=== PATIENT | male | born 1960 ===

== ENCOUNTER 2016-12-06 11:56 | Observation (INO) ==
[2016-12-06] MEDS ORDERED: DEXTROSE 50% 25 GM/50 ML VIAL IV PRN (13:05)
[2016-12-06] MEDS ORDERED: NICOTINE 21 MG/24 HR PATCH TRANSDERM PRN (13:05)
[2016-12-06] MEDS ORDERED: diphenhydrAMINE CAP 25 MG CAPSULE PO PRN (13:05)
[2016-12-06] MEDS ORDERED: ONDANSETRON 4 MG/2 ML VIAL IV PRN (13:05)
[2016-12-06] MEDS ORDERED: guaiFENesin/DM ER 600-30 MG TABLET PO PRN (13:05)
[2016-12-06] MEDS ORDERED: DOCUSATE SODIUM 100 MG CAPSULE PO PRN (13:05)
[2016-12-06] MEDS ORDERED: GLUCAGON 1 MG VIAL IM PRN (13:05)
[2016-12-06] MEDS ORDERED: ACETAMINOPHEN 325 MG TABLET PO PRN (13:05)
[2016-12-06] MEDS ORDERED: LABETALOL 20 MG/4 ML SYRINGE IV PRN (13:11)
--- NOTE | 2016-12-06 13:16 | Emergency Department Note ---
Fabrizio De Leon Manpreet, am scribing for, and in the presence of, Juan Shields MD 12:33. Alyson De Leon Phillip K, MD, personally performed the services described in this documentation, ascribed by Beni Dinh in my presence, and it is both accurate and complete 315 . Arrival - Arrival Chief Complaint: Neuro ED Nursing Triage Note: pt has numbness and tingling to lt side of face on about 0100 this am. pt has blood sugar of 695 at [facility]. Mode of Arrival: Stretcher Source: Patient Time Seen by Provider: 12/06/16 12:09 - History of Present Illness HPI Narrative: Pt is a 56 y/o Male who presents to the ED for further evaluation for numbness and tingling with onset at 0100 last night. The Pt was transferred from [facility] where he received CT Head and EKG, which were normal. Pt denies weakness, urinary incontinence, or Heart, and states he is back to his baseline condition. Pt has a Hx of NIDDM, HTN, chews tobacco, and takes 1 ASA qd. Pt states he felt his tongue was sour when he woke up in the morning. No other complaints were reported to ED. Home Medications: Home Medications Medication Instructions Recorded Confirmed Type Unable To Obtain [Unable to Obtain] 12/06/16 12/06/16 History Review of System - Review of System 12 point system: reviewed and no additional remarkable complaints except as stated - Review of System Constitutional: Absent: diaphoresis, fever Eyes: Absent: pain Respiratory: Absent: respiratory distress Cardiovascular: Absent: chest pain Gastrointestinal: Absent: abdominal pain, nausea Musculoskeletal: Absent: arm pain, back pain, lower back pain, neck pain Neurological: Absent: headache, weakness Medical,Surgical,& Family Hx - Medical History Cardio: History of: Hypertension Endocrine: History of: Diabetes Mellitus (NIDDM) - Social History Smoking Status: Never smoker Frequency of Alcohol Use: None Type of Drug Use: None Exam Vital Signs: Vital Signs Temperature 97.0 F L 12/06/16 12:00 Pulse Rate 81 12/06/16 12:00 Respiratory Rate 18 12/06/16 12:00 Blood Pressure 114/74 12/06/16 12:00 O2 Sat by Pulse Oximetry 100 12/06/16 12:00 - General General appearance: alert, in no apparent distress - Head Head exam: Present: atraumatic, normocephalic, normal inspection - Eye Eye exam: Present: normal appearance, PERRL, EOMI - Expanded ENT Exam Mouth exam: Present: other (Abrasions.). Absent: tongue normal (Ecchymosis to tounge bilaterally.) - Neck Neck exam: Present: normal inspection, full ROM, trachea midline - Chest Chest inspection: Present: normal inspection, symmetric chest wall rise. Absent : tenderness - Respiratory Respiratory exam: Present: normal lung sounds bilaterally - Cardiovascular Cardiovascular exam: Present: regular rate, normal rhythm, normal heart sounds - Abdominal Exam Abdominal exam: Present: soft. Absent: distention, tenderness - Extremities Exam Extremities exam: Present: normal inspection, full ROM. Absent: tenderness - Back Exam Back exam: Present: normal inspection, full ROM. Absent: tenderness - Neurological Exam Neurological exam: Present: alert, oriented X3, CN II-XII intact Disposition Clinical Impression: Hyperglycemia, possible seizure, possible TIA, Abrasion of tongue Case discussed with: patient Disposition: Still a Patient Condition: Stable
[2016-12-06] MEDS ORDERED: INSULIN REGULAR 100 UNIT/ML SUBCUT ONE (13:20)
--- NOTE | 2016-12-06 13:21 | Hospitalist History & Physical ---
Assessment and Plan - Time spent with patient Time spent with patient: Greater than 30 minutes (1) Diabetes Status: Acute Assessment and plan: 56-year-old male with history of diabetes and hypertension that is off his meds for 2-3 months. Patient was admitted with TIA symptoms have completely resolved. With the bite gonzalez on his tongue and the insides of his cheeks bilaterally will add seizures to his differential. Patient's case has been discussed with Dr. Santos the admitting hospitalist and further recommendations to follow. TIA/seizure?--Patient being admitted to observation. MRI, carotid ultrasound, echo have been ordered. Dr. Rojo from neurology will be consulted. Will let him determine if seizure workup needs to be done. Diabetes--patient has uncontrolled diabetes due to him not taken his medicines for 2 or 3 months. Patient's blood sugar is 695. Will start with sliding scale insulin and glucose checks before meals and at bedtime. Patient's repeat blood sugar in the ED here was 411 and patient was given insulin. I am also checking a hemoglobin A1c. Patient will need to be restarted on glucose control medications prior to discharge. Hypertension--patient states he has a history of hypertension but his blood pressures are controlled in the ED. We will continue to monitor this. Current Visit: Yes (2) TIA (transient ischemic attack) Status: Acute Current Visit: Yes (3) Seizure Status: Acute Current Visit: Yes History of Present Illness Chief complaint: Left facial numbness History of present illness: Mr. Florentino is a 56 year old male with history of diabetes and hypertension presenting to the ED as a transfer from [facility] with left facial numbness. Patient states at 1 AM he woke up with some tingling and numbness to the left cheek and jaw. He states he did have some drooping of the left eye as well. Patient states he went back to sleep woke back up and it was continuing. he tried to drink some water and it dribbled out of his mouth. Patient states it lasted about an hour and a half. He went to the [facility] where CT the head was performed which was normal, EKG was normal, and his labs were basically normal. Patient did have a blood sugar of 695. Patient states he does have diabetes and high blood pressure but he ran out of medicine about 2-3 months ago and has not refilled them. Patient also chews tobacco at least twice a day. He denies drinking alcohol. He denies headache, blurred vision, difficulty swallowing, chest pain, shortness of breath, abdominal pain, dysuria , constipation, difficulty walking or lower extremity edema. Upon exam patient was noted to have his symptoms completely resolved. His neuro exam is normal. He does have some bruising and bite gonzalez on his tongue and in his cheeks. Patient's vital signs are stable, chest is clear, abdomen is obese nontender. Patient's case been discussed with Dr. Shields the ED physician and Dr. Santos the attending hospitalist and it was agreed the patient will be admitted in observation for further evaluation. Home Medications Medication Instructions Recorded Confirmed Type Unable To Obtain [Unable to Obtain] 12/06/16 12/06/16 History Medical,Surgical,& Family Hx - Medical History Cardio: History of: Hypertension Endocrine: History of: Diabetes Mellitus (NIDDM) - Surgical History Cardiac Surgeries: Patient Denies: Cardiac Catheterization Abdominal Surgeries: Patient denies: Cholecystectomy Orthopedic Surgeries: Patient denies;: Orthopedic Surgery - Family History Family History: Reports;: Family Diabetes, Family Hypertension - Social History Smoking Status: Heavy tobacco smoker (Patient chews tobacco several times a day) Frequency of Alcohol Use: None Type of Drug Use: None Lives With:: Alone Functional capacity: independent ambulation Review of systems: Complete 10 system review of systems was obtained and pertinent negatives and positives are per HPI Exam - Constitutional Exam: Constitutional System: Mild distress. No tremulousness. Head: Normocephalic, atraumatic. Ears, Nose and Throat System: No evidence of Otitis or Mastoiditis. No epistaxis or discharge, patient has bite gonzalez on both sides of his tongue and the insides of his cheeks Eyes System: Pupils equal, round, and reactive. Extraocular muscles intact. Neck: Supple, without adenopathy, No jugular venous distention. No thyromegaly, neck mass, or prior surgery apparent. Respiratory System: Chest clear to auscultation. Cardiovascular System: Heart with regular rate and rhythm. No murmur. GI System: Abdomen soft, nontender. Normo active bowel sounds present. Musculoskeletal System: limbs with no pedal edema. Full distal pulses. Neurological System: No discernable sensory deficit. No aphasia Psychiatric System: Conversation is rational Results - Labs Lab Results: I have reviewed the past 24 hour labs - EKG EKG results: sinus rhythm EKG shows: sinus rhythm - Diagnostic Findings Procedure: CT: report reviewed by me (CT of the head from [facility] shows no intracranial abnormality)
--- NOTE | 2016-12-06 13:54 | Ultrasound Report ---
Carotid artery ultrasound Indication: Transient ischemic attack Comparison: None available Color Doppler flow and spectral analysis was performed. Findings: Minimal amount of atherosclerotic plaque is present in both proximal internal carotid arteries. The peak systolic velocity in the right is 63 cm/s . Ratio of flow is 0.7. The peak systolic velocity in the left is 51 cm/s . Ratio of flow is 0.5 Bilateral antegrade vertebral flow is seen. Impression: No evidence of hemodynamically significant stenosis is seen, 0-49% estimated stenosis. Consensus conference on the carotid ultrasound criteria used. Ultrasound images were captured and stored. PROCEDURE INTERPRETED AT [facility] DEPARTMENT OF RADIOLOGY Final Report Signed by: Dr. Michael Giron
[2016-12-06] MEDS: SODIUM CHLORIDE 0.9% 1,000 ML IV SCH (14:55)
--- NOTE | 2016-12-06 15:03 | Neurology Consult Note ---
History of Present Illness History of present illness: Mr. Florentino is a 56 year old gentleman with past medical history of diabetes and hypertension presenting to the ED as a transfer from [facility] with left facial numbness. Patient states at 1 AM he woke up with some tingling and numbness to the left cheek and jaw. He states he did have some drooping of the left eye as well. He tried to drink some water and it dribbled out of his mouth. Patient states it lasted about an hour and a half. He went to the [facility] where CT the head was performed which was normal, EKG was normal, and his labs were basically normal. Patient did have a blood sugar of 695. Apparently he is noncompliant with medications. Patient also chews tobacco at least twice a day. He denies drinking alcohol however he was found to have a bitten left lateral tongue. He denies headache, blurred vision, difficulty swallowing, chest pain, shortness of breath, abdominal pain, dysuria, constipation, difficulty walking or lower extremity edema. Carotid ultrasound reveals no abnormalities Home Medications Medication Instructions Recorded Confirmed Type Metoprolol Tartrate 50 mg PO DAILY 12/06/16 12/06/16 History Simvastatin 20 mg PO BEDTIME 12/06/16 12/06/16 History metFORMIN [Glucophage] 1,000 mg PO DAILY W/BREAKFAST 12/06/16 12/06/16 History metFORMIN [Glucophage] 500 mg PO DAILY W/SUPPER 12/06/16 12/06/16 History Allergies Allergy/AdvReac Type Severity Reaction Status Date / Time No Known Allergies Allergy Verified 12/06/16 14:14 12 point system: reviewed and no additional remarkable complaints except as stated Medical,Surgical,& Family Hx - Medical History Cardio: History of: Hypertension Endocrine: History of: Diabetes Mellitus (NIDDM) - Surgical History Cardiac Surgeries: Patient Denies: Cardiac Catheterization Abdominal Surgeries: Patient denies: Cholecystectomy Orthopedic Surgeries: Patient denies;: Orthopedic Surgery - Family History Family History: Reports;: Family Diabetes, Family Hypertension - Social History Smoking Status: Smoker, status unknown Frequency of Alcohol Use: None Type of Drug Use: None Exam - Constitutional Vitals: Period Temp Pulse Resp BP Sys/Graham Pulse Ox Last 24 Hr 96.9 F-97.2 F 80-88 20-20 109-122/66-67 91-99 Exam: GENERAL: Patient is in no acute distress. NECK: Neck is supple. There is no JVD. No carotid bruits present. No thyroid masses. CVS: First and second heart sounds are normal. There is no S3 present. Regular rate and rhythm. RESPIRATORY: Lungs are clear to auscultation without any rales or rhonchi. ABDOMEN: Soft and non-tender. Bowel sounds are present. There is no hepatosplenomegaly. EXT: There is no palpable edema. Peripheral pulses are present. Skin: No rashes Central Nervous system: General: Alert, awake and Oriented x 3 Speech: Fluent Comprehension: Intact and normal Facial expressions: Normal Cranial Nerves: CN1/Olfactory: Normal CN II/ Optic: Normal, Visual Farias unreliable CN III, and : SAGE & EOMI CN V: Normal & intact CN VII: face is symmetric CNVIII: Normal CN XI/X/XI/XII: Intact and Normal however he has left lateral tongue bruised Motor: Bulk and Tone is normal. Strength in the right 5/5 Strength in the left 5/5 Sensory: Grossly intact for all the modalities of PP, LT and temp sense Reflexes: 1+ and symmetrical Cerebellar function: Normal finger to nose and heel to armas testing. Toes: Equivocal Gait: Normal heel to heel and toe to toe and tandem walk. Assessment and Plan (1) TIA (transient ischemic attack) Status: Acute Assessment and plan: Start and continue aspirin a day Agree with MRI of the brain Current Visit: Yes (2) Abrasion of tongue Status: Acute Assessment and plan: Suspect seizure Order EEG Check UDS Current Visit: Yes
[2016-12-06 15:08] LABS: Cholesterol 165 MG/DL (50-200); HDL Cholesterol 61 MG/DL (40-60); Triglycerides 133 MG/DL (2-150); Troponin I Only < 0.015 NG/ML (0.00-0.045); VLDL CHOLESTEROL 26.6 MG/DL
--- NOTE | 2016-12-06 16:22 | Magnetic Resonance Report ---
Exam: MR head/brain wo con Date: 12/06/2016 1:13 PM Comparison: CT brain 12/06/2016 Indication: TIA, possible seizure, left facial numbness Technique:[Multiple acquisitions were obtained including sagittal T1, coronal T2, and axial ADC, diffusion, FLAIR, T2, GRE, and T1 scans without contrast only. Scans were obtained on a 1.5 Nadia magnet.] Findings: The ventricles are normal in size with no midline displacement. The pituitary has normal appearance and the cerebellar tonsils are normal in location. No acute infarction is identified on the diffusion scans. No evidence of hemorrhage. CSF-like finding in the posterior fossa just to the left of midline which measures 27 x 24 x 20 mm. Minimal atrophy and FLAIR/T2 hyperintensities. Enlarged perivascular spaces are noted which represent a normal variant. Retention cysts in the maxillary sinuses with the largest finding measuring 22 mm on the left. No acute findings in the orbits, temporal bones, and [place] of [place]. Impression: No acute infarction is identified. 27 x 24 x 20 mm arachnoid cyst in the left posterior fossa location. Minimal atrophy and microvascular disease. T2 hyperintensities can also be associated with demyelinating disease, vasculitis, viral illness, etc. Maxillary sinus retention cysts consistent with chronic sinusitis. PROCEDURE INTERPRETED AT [facility] DEPARTMENT OF RADIOLOGY Final Report Signed by: Dr. Iesha iLm
[2016-12-06] MEDS: INSULIN LISPRO 100 UNIT/ML SUBCUT SCH ×2 (17:09→21:28)
[2016-12-06] MEDS: PANTOPRAZOLE 40 MG TABLET PO SCH (17:13)
[2016-12-06] MEDS: ENOXAPARIN 40 MG/0.4 ML SYRINGE SUBCUT SCH (17:13)
--- NOTE | 2016-12-06 19:16 | ECHO Report ---
Zion Florentino Exam Date: 12/06/2016 15:12 Referring Physician: Technologist: Jody Brower RDCS Age: 56 Ht (in): 67 Wt (lb): 150 Gender: M Exam Location: [facility] [place] Echo Indications: NIDDM, Essential (primary) hypertension, Transient cerebral ischemic attack, unspecified, Left facial numbness BP: 122 / 67 HR: 75 Rhythm: Sinus Technical Quality: Good IMPRESSIONS 1. The left ventricle is normal size and systolic function ejection fraction 55%. There is mild concentric left ventricular hypertrophy with grade 1 diastolic dysfunction. 2. Left atrium is mildly dilated. 3. Right-sided chambers are normal size. 4. Aortic valves overall or morphologically and functionally normal. 5. There is no evidence of elevated right-sided pressures. 6. There is no gross evidence for source of emboli. MEASUREMENTS (Male / Female) Normal Values 2D ECHO LV Diastolic Diameter PLAX 4.2 cm 4.2 - 5.9 / 3.9 - 5.3 cm LV Systolic Diameter PLAX 3.3 cm LV Fractional Shortening PLAX 22.6 % IVS Diastolic Thickness 1.4 cm 0.6 - 1.0 / 0.6 - 0.9 cm LVPW Diastolic Thickness 1.4 cm 0.6 - 1.0 / 0.6 - 0.9 cm RV Internal Dim ED PLAX 2.8 cm Aortic Root Diameter 3.2 cm LA Systolic Diameter LX 4.7 cm 3.0 - 4.0 / 2.7 - 3.8 cm DOPPLER TR Peak Velocity 258.0 cm/s TR Peak Gradient 26.6 mmHg FINDINGS Left Ventricle Normal left ventricular cavity size. Mild left ventricular hypertrophy with grade 1 diastolic dysfunction. Left ventricular ejection fraction is estimated at 55 %. Right Ventricle The right ventricle is normal in size and function. Right Atrium The right atrium is normal in size. Left Atrium The left atrium is mildly enlarged. Mitral Valve Morphologically normal mitral valve without significant stenosis or prolapse. There is no mitral regurgitation. Aortic Valve Morphologically normal aortic valve without significant sclerosis or stenosis. There is no aortic regurgitation. Tricuspid Valve Morphologically normal tricuspid valve. Trace to mild tricuspid valve regurgitation. Tricuspid regurgitation velocities suggest a PAP of 37 mmHg. Pulmonic Valve Morphologically normal pulmonic valve without significant stenosis. There is no pulmonic regurgitation. Pericardium Normal pericardium without effusion. Aorta Normal ascending aorta dimension. Dom Young MD (Electronically Signed) Final Date: 06 December 2016 19:14
[2016-12-07 01:25] LABS: Barbiturates Screen,Urine Negative (Negative); Benzodiazepines Screen,Urine Negative (Negative); Cannabinoid Screen,Urine Negative (Negative); Opiate Screen,Urine Negative (Negative); Phencyclidine Screen,Urine Negative (Negative)
[2016-12-07 05:48] LABS: Basophils % 0.5 % (0.0-0.8); Eosinophils # 0.2 10*3/uL (0.0-0.87); Eosinophils % 2.7 % (0.00-10.9); Hematocrit 36.5 VOL% (42.0-52.0); Hemoglobin 11.3 GM/DL (14.0-18.0); Immature Granulocytes % 0.7 %; Immature Granulocytes Absolute 0.06 #; Lymphocytes # 2.6 10*3/uL (1.4-4.0); Lymphocytes % 30.9 % (21.2-54.2); Mean Corpuscular Hemoglobin 28 PG (27-34); Mean Corpuscular Volume 89.7 FL (87-102); Mean Platelet Volume 10.2 FL (9.6-12.0); Monocytes # 0.9 10*3/uL (0.11-0.8); Monocytes % 10.4 % (1.7-12.7); Neutrophils # 4.6 10*3/uL (1.4-7.4); Neutrophils % 54.8 % (38.7-73.9); Platelet Count 301 T/CUMM (130-400); Red Blood Count 4.07 MC/CUMM (3.8-5.5); Red Cell Distribution Width 13.5 % (9.3-17.3); White Blood Count 8.3 T/CUMM (4-12)
[2016-12-07] MEDS: SODIUM CHLORIDE 0.9% 1,000 ML IV SCH (06:02)
[2016-12-07 06:34] LABS: Calcium 8.4 MG/DL (8.5-10.1); Magnesium 1.7 MG/DL (1.8-2.4); Osmolality,Calculated 282.7 MOS/KG (273-304); Potassium 4.1 MMOL/L (3.5-5.1); Risk Ratio 2.42; Thyroid Stimulating Hormone 1.39 uIU/ml (0.358-3.74); VLDL CHOLESTEROL 21.8 MG/DL
[2016-12-07] MEDS: INSULIN LISPRO 100 UNIT/ML SUBCUT SCH ×3 (08:38→16:57)
[2016-12-07] MEDS: PANTOPRAZOLE 40 MG TABLET PO SCH (08:39)
--- NOTE | 2016-12-07 11:40 | Hospitalist Progress Note ---
Assessment and Plan - Time spent with patient Time spent with patient: Greater than 30 minutes (1) TIA (transient ischemic attack) Status: Acute Assessment and plan: Continue current management. MRI is negative carotid and echo normal. Defer to neurology whether the patient requires EEG. Current Visit: Yes (2) Diabetes Status: Acute Assessment and plan: Continue current management. Current Visit: Yes Hospitalist: Subjective Interval history: No complaints from the patient this morning. He wants to go home. MRI of his head was negative. Exam - Constitutional Vitals: Period Temp Pulse Resp BP Sys/Graham Pulse Ox Last 24 Hr 96.7 F-98.8 F 62-88 16-20 96-122/54-67 91-99 General appearance: no acute distress - Head Head exam: Present: normocephalic, atraumatic - Eye Eye exam: Present: EOMI Pupils: Present: SAGE - ENT ENT exam: Present: normal exam - Neck Neck exam: Present: normal inspection - Respiratory Respiratory exam: Present: clear to auscultation bilaterally. Absent: rhonchi, wheezes - Cardiovascular Cardiovascular exam: Present: regular rate and rhythm. Absent: gallop, rubs, systolic murmur - GI/Abdominal GI/Abdominal exam: Present: normal bowel sounds, soft. Absent: distended, firm , guarding, tenderness, rebound - Extremities Exam Extremities exam: Present: normal inspection. Absent: calf tenderness, edema Results - Labs CBC & BMP: 12/07/16 05:15 12/07/16 05:15 Lab Results: I have reviewed the past 24 hour labs
--- NOTE | 2016-12-07 12:53 | Neurology Progress Note ---
Neurology - PN : Subjective Interval history: Patient seems to be doing really well. No new problems reported. MRI of the brain is unremarkable. EEG is a still pending. Exam (Progress Note) - Constitutional Vitals: Period Temp Pulse Resp BP Sys/Graham Pulse Ox Last 24 Hr 96.7 F-98.8 F 62-88 16-20 96-122/54-67 91-99 Exam: GENERAL: Patient is in no acute distress. NECK: Neck is supple. There is no JVD. No carotid bruits present. No thyroid masses. CVS: First and second heart sounds are normal. There is no S3 present. Regular rate and rhythm. RESPIRATORY: Lungs are clear to auscultation without any rales or rhonchi. ABDOMEN: Soft and non-tender. Bowel sounds are present. There is no hepatosplenomegaly. EXT: There is no palpable edema. Peripheral pulses are present. Skin: No rashes Central Nervous system: General: Alert, awake and Oriented x 3 Speech: Fluent Comprehension: Intact and normal Facial expressions: Normal Cranial Nerves: CN1/Olfactory: Normal CN II/ Optic: Normal, Visual Farias unreliable CN III, and : SAGE & EOMI CN V: Normal & intact CN VII: face is symmetric CNVIII: Normal CN XI/X/XI/XII: Intact and Normal however he has left lateral tongue bruised Motor: Bulk and Tone is normal. Strength in the right 5/5 Strength in the left 5/5 Sensory: Grossly intact for all the modalities of PP, LT and temp sense Reflexes: 1+ and symmetrical Cerebellar function: Normal finger to nose and heel to armas testing. Toes: Equivocal Gait: Normal heel to heel and toe to toe and tandem walk. Results - Labs CBC & BMP: 12/07/16 05:15 12/07/16 05:15 Assessment and Plan (1) TIA (transient ischemic attack) Status: Acute Assessment and plan: Continue aspirin a day Current Visit: Yes (2) Abrasion of tongue Status: Acute Assessment and plan: EEG can be done as an outpatient Okay to go home when okay with PCP Thank you for the consult Current Visit: Yes Specialty Discharge - Follow Up or Referrals Follow up with: Rashi Rojo MD [Physician] - 2 Weeks
[2016-12-07] MEDS: ENOXAPARIN 40 MG/0.4 ML SYRINGE SUBCUT SCH (14:30)
--- NOTE | 2016-12-07 16:03 | Discharge Summary ---
Hospital Course - Hospital Course Hospital Course: Mr. Shah was admitted for evaluation of left facial numbness. He was worked up for a TIA to include an MRI. Carotid ultrasound and echocardiogram were unremarkable. MRI returned unremarkable. Neurology was consulted who performed an EEG which was pending at time of discharge. Patient will follow- up as an outpatient with neurology. He will continue aspirin. LDL was 70. Of note his hemoglobin A1c was greater than 15. He was instructed to follow-up with his primary care provider for treatment of his poorly controlled diabetes. I spent 36 minutes coordinating this discharge. - Time spent with patient Time with patient DS: Greater than 30 minutes Diagnosis - Discharge Diagnosis (1) TIA (transient ischemic attack) Status: Acute (2) Diabetes Status: Acute Specialty Discharge - Follow Up or Referrals Follow up with: Rashi Rojo MD [Physician] - 2 Weeks Discharge Plan - Discharge Data Disposition: Disch To Home/Self Care Condition at Discharge: Stable Discharge Diet: advance to your usual diet Activity: resume usual activities as tolerated - Discharge Medications New Aspirin [Aspirin EC] 81 mg PO DAILY #30 tablet. Nicotine 21 mg/24 Hr Patch [Nicoderm CQ 21 mg/24 hr Patch] 1 patch TRANSDERM DAILY PRN #30 patch PRN Reason: Nicotine Cravings Continue metFORMIN [Glucophage] 1,000 mg PO DAILY W/BREAKFAST Simvastatin 20 mg PO BEDTIME Metoprolol Tartrate 50 mg PO DAILY metFORMIN [Glucophage] 500 mg PO DAILY W/SUPPER - Follow Up or Referral Follow Up: Rashi Rojo MD [Physician] - 2 Weeks - Forms/Instructions Instructions: Meralgia Paresthetica (GEN) Exam - Constitutional Vitals: Period Temp Pulse Resp BP Sys/Graham Pulse Ox Last 24 Hr 96.7 F-98.8 F 62-73 16-20 96-159/54-84 95-99 General appearance: normal weight, no acute distress - Head Head exam: Present: normal inspection, normocephalic, atraumatic - Eye Eye exam: Present: EOMI Pupils: Present: SAGE - ENT ENT exam: Present: normal exam, normal external ear exam - Neck Neck exam: Present: normal inspection - Respiratory Respiratory exam: Present: clear to auscultation bilaterally. Absent: accessory muscle use, prolonged expiratory phase, wheezes - Cardiovascular Cardiovascular exam: Present: regular rate and rhythm. Absent: bradycardia, irregular rhythm, systolic murmur, tachycardia - GI/Abdominal GI/Abdominal exam: Present: normal bowel sounds. Absent: ascites, distended, hypoactive bowel sounds, tenderness - Extremities Exam Extremities exam: Present: normal inspection Discharge Results Labs on day of discharge: Labs from last 24 hours 12/07/16 12/07/16 12/07/16 12:27 07:38 05:15 WBC RBC Hgb Hct MCV MCH MCHC RDW Plt Count MPV Neut % (Auto) Lymph % (Auto) [place] % (Auto) Eos % (Auto) Baso % (Auto) Neut # (Auto) Lymph # (Auto) [place] # (Auto) Eos # (Auto) Baso # (Auto) Immature Gran % Nucleated RBC % Immature Gran # Nucleated RBCs # Sodium 138 Potassium 4.1 Chloride 101 Carbon Dioxide 30 Anion Gap 11.1 BUN 7 Creatinine 0.60 L GFR Calculation 118 BUN/Creatinine Ratio 11.00 Glucose 271 H POC Glucose 305 H 257 H Hemoglobin A1c Calculated Osmolality 282.7 Calcium 8.4 L Magnesium 1.7 L Troponin I Triglycerides 109 Cholesterol 133 LDL Cholesterol 70.0 VLDL Cholesterol 21.8 HDL Cholesterol 55 Heart Disease Risk Ratio 2.42 TSH 3rd Generation 1.390 Urine Opiates Screen Ur Barbiturates Screen Ur Phencyclidine Scrn U Amphetamine/Methamph U Benzodiazepines Scrn U Cocaine Metab Screen U Cannabinoids Screen 12/07/16 12/07/16 12/06/16 05:15 00:00 21:09 WBC 8.3 RBC 4.07 Hgb 11.3 L Hct 36.5 L MCV 89.7 MCH 28 MCHC 31.0 L RDW 13.5 Plt Count 301 MPV 10.2 Neut % (Auto) 54.8 Lymph % (Auto) 30.9 [place] % (Auto) 10.4 Eos % (Auto) 2.7 Baso % (Auto) 0.5 Neut # (Auto) 4.6 Lymph # (Auto) 2.6 [place] # (Auto) 0.9 H Eos # (Auto) 0.2 Baso # (Auto) 0.0 Immature Gran % 0.7 Nucleated RBC % 0.0 Immature Gran # 0.06 Nucleated RBCs # 0.00 Sodium Potassium Chloride Carbon Dioxide Anion Gap BUN Creatinine GFR Calculation BUN/Creatinine Ratio Glucose POC Glucose 250 H Hemoglobin A1c Calculated Osmolality Calcium Magnesium Troponin I Triglycerides Cholesterol LDL Cholesterol VLDL Cholesterol HDL Cholesterol Heart Disease Risk Ratio TSH 3rd Generation Urine Opiates Screen Negative Ur Barbiturates Screen Negative Ur Phencyclidine Scrn Negative U Amphetamine/Methamph Negative U Benzodiazepines Scrn Negative U Cocaine Metab Screen Negative U Cannabinoids Screen Negative 12/06/16 12/06/16 12/06/16 19:03 16:41 16:07 WBC RBC Hgb Hct MCV MCH MCHC RDW Plt Count MPV Neut % (Auto) Lymph % (Auto) [place] % (Auto) Eos % (Auto) Baso % (Auto) Neut # (Auto) Lymph # (Auto) [place] # (Auto) Eos # (Auto) Baso # (Auto) Immature Gran % Nucleated RBC % Immature Gran # Nucleated RBCs # Sodium Potassium Chloride Carbon Dioxide Anion Gap BUN Creatinine GFR Calculation BUN/Creatinine Ratio Glucose POC Glucose 140 H Hemoglobin A1c Calculated Osmolality Calcium Magnesium Troponin I < 0.015 < 0.015 Triglycerides Cholesterol LDL Cholesterol VLDL Cholesterol HDL Cholesterol Heart Disease Risk Ratio TSH 3rd Generation Urine Opiates Screen Ur Barbiturates Screen Ur Phencyclidine Scrn U Amphetamine/Methamph U Benzodiazepines Scrn U Cocaine Metab Screen U Cannabinoids Screen 12/06/16 14:13 WBC RBC Hgb Hct MCV MCH MCHC RDW Plt Count MPV Neut % (Auto) Lymph % (Auto) [place] % (Auto) Eos % (Auto) Baso % (Auto) Neut # (Auto) Lymph # (Auto) [place] # (Auto) Eos # (Auto) Baso # (Auto) Immature Gran % Nucleated RBC % Immature Gran # Nucleated RBCs # Sodium Potassium Chloride Carbon Dioxide Anion Gap BUN Creatinine GFR Calculation BUN/Creatinine Ratio Glucose POC Glucose Hemoglobin A1c > 15.5 H Calculated Osmolality Calcium Magnesium Troponin I Triglycerides Cholesterol LDL Cholesterol VLDL Cholesterol HDL Cholesterol Heart Disease Risk Ratio TSH 3rd Generation Urine Opiates Screen Ur Barbiturates Screen Ur Phencyclidine Scrn U Amphetamine/Methamph U Benzodiazepines Scrn U Cocaine Metab Screen U Cannabinoids Screen DS: Provider Date of admission: 12/06/16 12:23 Primary care physician: . No PCP Attending physician on admission: Kady Sapp MD Consults: 12/06/16 13:05 Consult to Physician [CONS] Routine Comment: TIA/?seizure Consulting Provider: Rashi Rojo When should Consulting Provider be notified: Now 12/06/16 15:43 Consult to Pharmacy [CONS] Routine Reason for Pharmacy Consult: Adjust Meds Renal Funct Discharging clinician: Kady Sapp MD Expected date of discharge: 12/07/16
[2016-12-07 16:39] VITALS: BP 91/50
--- NOTE | 2017-01-24 14:22 | Electroencephalogram ---
DATE OF STUDY: 01/24/2017 HISTORY: A 56-year-old male with a history of TIA. INTRODUCTION: A digital EEG was performed using the standard 10/20 system of electrode placement wit h one channel of EKG monitoring. Photic stimulation and hyperventilation are performed. DESCRIPTION OF RECORD: The background is very well organized and consists of 8.5 to 9 hertz moderate amplitude bilaterally symmetrical alpha rhythm predominant in the posterior head region which attenu ates with eye opening. Photic stimulation elicits driving response at all flash frequencies. Hyperv entilation produced no abnormalities. Drowsiness is characterized by 5 to 7 hertz generalized theta activity. Vertex sharp waves are seen during second stage of sleep. There are no focal, sharp-wave, spike or wave activities seen. Heart rate 60 beats per minute. IMPRESSION: NORMAL EEG DURING WAKEFULNESS AND SLEEPINESS. CLINICAL CORRELATION: No focal nor epileptiform features are seen. Normal EEG does not rule out the diagnostic possibility of epilepsy. Clinical correlation is suggested.
== END 2016-12-07 17:00 | disposition home or self-care (01) ==
LOC: EDUNIT# → EDBD → N.ED 11:56 → N.EDINP 11:56 → N.4E 13:14
PROVIDERS: ADMIT Internal Medicine; ATTEND Internal Medicine